=== PATIENT | male | born 1975 | race Hispanic/Latino ===

== ENCOUNTER 2021-03-28 07:40 | Emergency (ER) | payer SELFPAY | END 2021-03-28 08:59 | disposition home or self-care (01) | LOC: ERS 07:40 | DX: K64.4 Residual hemorrhoidal skin tags (principal); K64.8 Other hemorrhoids; Z85.820 Personal history of malignant melanoma of skin | CPT/HCPCS: 99282 ==

== ENCOUNTER 2023-11-10 17:17 | Emergency (ER) | payer SELFPAY ==
[~2023-11-10 17:17] MED LIST: Iopamidol-370 76% 500 ML MDV (1 ML CHARGE) ONE
[2023-11-10 18:52] LABS: #Basophils 0.1 thou/uL (0.0-0.2); #Eosinphils 0.1 thou/uL (0.0-0.7); #Monocytes 0.6 thou/uL (0.11-0.59); #Neutrophils 8.7 thou/uL (1.40-6.50); %Basophils 0.4 % (0.0-1.0); %Eosinophils 0.5 % (0.0-10.0); %Lymphocytes 18.9 % (21.0-51.0); %Monocytes 5.3 % (0.0-10.0); %Neutrophils 74.5 % (42.0-75.0); Hemoglobin 14.1 g/dL (14.0-18.0); Mean Corpuscular HGB CONC 34.4 g/dL (32.0-36.0); Mean Corpuscular Hemoglobin 31.8 pg (27.0-31.0); Mean Corpuscular Volume 92.3 fl (78.0-98.0); Mean Platelet Volume 9.6 fL (7.4-10.4); Platelet Count 181 10x3/uL (130-400); RBC Distribution Width 12.5 % (11.5-14.5); Red Blood Cell (RBC) Count 4.44 mill/uL (4.70-6.10); White Blood Cell (WBC) Count 11.7 10x3/uL (4.8-10.8)
[2023-11-10] MEDS ORDERED: Morphine 4 MG/ML VIAL ONE (19:13)
[2023-11-10] MEDS ORDERED: Ondansetron PF 4 MG/2 ML Vial ONE (19:13)
[2023-11-10 19:30] LABS: ALT (SGPT) 46 U/L (8-55); AST (SGOT) 24 U/L (5-34); Albumin 4.2 g/dL (3.5-5.0); Alkaline Phosphatase 68 U/L (40-110); Anion Gap 13 mmol/L (10-20); BUN (Urea Nitrogen) 15 mg/dL (8.9-20.6); Bilirubin, Total 0.8 mg/dL (0.2-1.2); Calc. Creatinine Clearance 0 mL/min (70-130); Calcium 9.2 mg/dL (7.8-10.44); Carbon Dioxide 21 mmol/L (22-29); Chloride 104 mmol/L (98-107); Estimated GFR 106; Glucose 116 mg/dL (70-105); Potassium 3.7 mmol/L (3.5-5.1); Protein, Total 7.2 g/dL (6.0-8.3); Sodium 134 mmol/L (136-145)
[2023-11-10] MEDS ORDERED: Lidocaine 1% w/Epinephrine 1:100K 20 ML VIAL ONE (19:53)
== END 2023-11-10 20:58 | disposition home or self-care (01) ==
LOC: ERS 17:17
DX: K65.1 Peritoneal abscess (principal)
CPT/HCPCS: 36415; 74177; 80053; 85025; 96374; 96375; J2270; J2405; Q9967

== ENCOUNTER 2024-01-01 06:06 | Emergency (ER) | payer SELFPAY ==
[2024-01-01] MEDS ORDERED: Lidocaine 4% Patch TD SCH (06:45)
[2024-01-01] MEDS ORDERED: predniSONE 20 MG TAB ONE (07:19)
[2024-01-01] MEDS ORDERED: Ibuprofen 800 MG TAB ONE (07:19)
[2024-01-01] MEDS ORDERED: Transdermal Patch Removal TOP SCH (18:45)
== END 2024-01-01 07:24 | disposition home or self-care (01) ==
LOC: EDSEX 06:06 → ERS 06:06
DX: M54.12 Radiculopathy, cervical region (principal); R20.0 Anesthesia of skin; Z55.6 Problems related to health literacy
CPT/HCPCS: 99283; J7512